=== PATIENT | female | born 1995 | race Caucasian/White ===

== ENCOUNTER → 2017-08-05 12:58 | Outpatient (CLI) | payer MEDICAID ==
[~2017-08-05 12:58] MED LIST: PRENATAL COMPLE1 TAB PO
[2017-09-17 11:20] VITALS: BMI 21.9
== END | disposition home or self-care (01) ==
LOC: D.US 12:58
DX: N13.30 Unspecified hydronephrosis (principal)

== ENCOUNTER 2017-09-17 10:30 | Inpatient (IN) | payer MEDICAID ==
[~2017-09-17] VITALS: Ht 170.2 cm; Wt 63.5 kg
[2017-09-17] MEDS ORDERED: PRENATAL COMPLE1 TAB PO (10:44)
[2017-09-17 11:20] VITALS: BP 110/67; Ht 170.2 cm; Wt 63.5 kg
[2017-09-17 11:51] LABS: HEMATOCRIT 29.1 % (36.0-48.0); HEMOGLOBIN 9.5 g/dL (12-16); MCH 27.9 pg (26.0-34.0); MCHC 32.6 g/dL (31.0-37.0); MCV 85.6 fL (80.0-100.0); MEAN PLATELET VOLUME 10.2 fL (7.4-10.4); RBC 3.4 10x6/uL (4.00-5.40); WBC 8.8 10x3/uL (4.8-10.8)
[2017-09-17 13:18] LABS: APPEARANCE SLT CLOUDY (CLEAR); BACTERIA MANY /hpf (NONE SEEN); BILIRUBIN NEGATIVE (NEGATIVE); COLOR YELLOW (YELLOW); GLUCOSE NEGATIVE (NEGATIVE); KETONE NEGATIVE (NEGATIVE); MUCUS <1+ /lpf (NONE SEEN); NITRITE NEGATIVE (NEGATIVE); PROTEIN TRACE mg/dL (NEGATIVE)
[2017-09-17 18:45] VITALS: BP 120/67
[2017-09-17 19:41] VITALS: BP 117/56
[2017-09-18 06:45] LABS: BASOPHILS 0.1 % (0-2); EOSINOPHILS 0.9 % (0-7); HEMATOCRIT 25.5 % (36.0-48.0); HEMOGLOBIN 8.3 g/dL (12-16); IMMATURE GRANULOCYTES 0.2 % (0-5); LYMPHOCYTES 16.7 % (15-50); MCHC 32.5 g/dL (31.0-37.0); MCV 86.1 fL (80.0-100.0); MEAN PLATELET VOLUME 10.7 fL (7.4-10.4); MONOCYTES 7.9 % (2-11); NEUTROPHILS 74.2 % (40-80); PLATELET COUNT 151 10x3/uL (130-400); RBC 2.96 10x6/uL (4.00-5.40); RDW 14.2 % (11.5-14.5); WBC 8.5 10x3/uL (4.8-10.8)
[2017-09-18 09:46] LABS: RAPID PLASMA REAGIN Non Reactive (Non Reactive)
[2017-09-18 19:47] VITALS: BP 102/67
[2017-09-18 23:05] VITALS: BP 109/72
[2017-09-19 08:20] VITALS: BP 100/55
== END 2017-09-19 14:45 | disposition home or self-care (01) | DRG 775 ==
LOC: D.LDO 10:30 → D.LD 10:53
PROVIDERS: Obstetrics & Gynecology
PROC: 10E0XZZ Delivery of Products of Conception, External Approach (ICD-10-PCS; principal; 2017-09-17)
DX: O80 Encounter for full-term uncomplicated delivery (principal); Z37.0 Single live birth; Z3A.38 38 weeks gestation of pregnancy

== ENCOUNTER 2017-09-25 08:30 | Emergency (ER) | payer MEDICAID ==
[2017-09-17 11:20] VITALS: BMI 21.9
[2017-09-25 09:05] LABS: BASOPHILS 0.1 % (0-2); HEMATOCRIT 33.5 % (36.0-48.0); HEMOGLOBIN 10.7 g/dL (12-16); IMMATURE GRANULOCYTES 0.3 % (0-5); LYMPHOCYTES 16.7 % (15-50); MCH 27.4 pg (26.0-34.0); MCHC 31.9 g/dL (31.0-37.0); MCV 85.9 fL (80.0-100.0); MEAN PLATELET VOLUME 10.2 fL (7.4-10.4); MONOCYTES 5.9 % (2-11); PLATELET COUNT 173 10x3/uL (130-400); RDW 13.5 % (11.5-14.5)
[2017-09-25 09:20] LABS: APTT 30.1 SECONDS (22.8-39.4); INR 0.97 (0.85-1.17); PROTIME 12.5 SECONDS (11.6-15.0)
[2017-09-25 09:21] LABS: D-DIMER-QUANTITATIVE 0.48 ug/mLFEU (0.20-0.54)
[2017-09-25 09:23] LABS: HCG SERUM POSITIVE (NEGATIVE)
[2017-09-25 09:32] LABS: ALBUMIN 3.3 g/dL (3.4-5.0); ALKALINE PHOSPHATASE 92 U/L (46-116); ALT (SGPT) 19 U/L (10-68); BILIRUBIN - TOTAL 0.31 mg/dL (0.2-1.3); CALC OSMOLALITY 284 mosm/kg (275-300); CALCIUM 9.5 mg/dL (8.5-10.1); CARBON DIOXIDE 26.9 mmol/L (21.0-32.0); CHLORIDE - SERUM 105 mmol/L (98-107); CREATININE - SERUM 0.6 mg/dL (0.6-1.3); GLUCOSE 87 mg/dL (74-106); POTASSIUM - SERUM 3.5 mmol/L (3.5-5.1); PROTEIN - SERUM 7.2 g/dL (6.4-8.2); SODIUM 144 mmol/L (136-145); UREA NITROGEN 11 mg/dL (7-18); eGFR NON AFRICAN AMERICAN > 90 mL/min (90-120)
== END 2017-09-25 11:11 | disposition home or self-care (01) ==
LOC: D.ER 08:30
PROVIDERS: Family Medicine
DX: O90.89 Other complications of the puerperium, not elsewhere classified (principal); N93.9 Abnormal uterine and vaginal bleeding, unspecified

== ENCOUNTER 2018-06-26 08:32 | Emergency (ER) | payer MEDICAID ==
[~2018-06-26] VITALS: Ht 170.2 cm; Wt 52.3 kg
[2018-06-26 08:39] VITALS: Ht 170.2 cm; Wt 52.3 kg
[2018-06-26 09:40] LABS: APPEARANCE HAZY (CLEAR); BILIRUBIN NEGATIVE (NEGATIVE); COLOR YELLOW (YELLOW); GLUCOSE NEGATIVE (NEGATIVE); KETONE NEGATIVE (NEGATIVE); NITRITE NEGATIVE (NEGATIVE); PROTEIN 1+ mg/dL (NEGATIVE); UROBILINOGEN NORMAL (NORMAL)
[2018-06-26 09:41] LABS: BACTERIA MODERATE /hpf (NONE SEEN); EPITHELIAL CELLS 0-5 /hpf (0-5); MUCUS >1+ /lpf (NONE SEEN); WHITE CELLS - URINE 0-5 /hpf (0-5)
[2018-06-26 10:05] LABS: ALBUMIN 4.4 g/dL (3.4-5.0); ALKALINE PHOSPHATASE 60 U/L (46-116); ALT (SGPT) 14 U/L (10-68); BILIRUBIN - TOTAL 0.37 mg/dL (0.2-1.3); CALC OSMOLALITY 276 mosm/kg (275-300); CALCIUM 9.3 mg/dL (8.5-10.1); CARBON DIOXIDE 22.2 mmol/L (21.0-32.0); CHLORIDE - SERUM 104 mmol/L (98-107); CREATININE - SERUM 0.6 mg/dL (0.6-1.3); GLUCOSE 81 mg/dL (74-106); POTASSIUM - SERUM 3.6 mmol/L (3.5-5.1); PROTEIN - SERUM 8.1 g/dL (6.4-8.2); SODIUM 140 mmol/L (136-145); UREA NITROGEN 10 mg/dL (7-18); eGFR NON AFRICAN AMERICAN > 90 mL/min (90-120)
[2018-06-26 10:16] LABS: BASOPHILS 0.4 % (0-2); HEMATOCRIT 36.2 % (36.0-48.0); HEMOGLOBIN 12.3 g/dL (12-16); IMMATURE GRANULOCYTES 0.2 % (0-5); LYMPHOCYTES 24.8 % (15-50); MCH 28.2 pg (26.0-34.0); MEAN PLATELET VOLUME 10.2 fL (7.4-10.4); MONOCYTES 6.1 % (2-11); NEUTROPHILS 64.5 % (40-80); PLATELET COUNT 164 10x3/uL (130-400); RBC 4.36 10x6/uL (4.00-5.40); RDW 13.6 % (11.5-14.5); WBC 5.4 10x3/uL (4.8-10.8)
[2018-06-26 10:27] LABS: HCG - QUANTITATIVE (MATERNAL) 33591 mIU/mL
[2018-06-26] MEDS ORDERED: FLAGYL500 MG PO (12:52)
[2018-06-26 13:08] VITALS: BP 103/69
== END 2018-06-26 13:08 | disposition home or self-care (01) ==
LOC: D.ER 08:32
PROVIDERS: Family Medicine
DX: O23.591 Infection of other part of genital tract in pregnancy, first trimester (principal); B96.89 Other specified bacterial agents as the cause of diseases classified elsewhere; Z3A.12 12 weeks gestation of pregnancy

== ENCOUNTER 2020-08-12 10:01 | Outpatient (CLI) | payer BC ==
[2018-06-26 08:39] VITALS: BMI 18.0
[~2020-08-12 10:01] MED LIST changes: +FLAGYL500 MG PO
== END 2020-08-12 12:27 | disposition home or self-care (01) ==
LOC: D.LDO 10:01 → D.LD 12:27
PROVIDERS: ATTEND Student in an Organized Health Care Education/Training Program
DX: O47.9 False labor, unspecified (principal)

== ENCOUNTER 2020-09-06 05:27 | Inpatient (IN) | payer BC ==
[~2020-09-06] VITALS: Ht 170.2 cm; Wt 68.0 kg
[2020-09-06 06:48] VITALS: BP 109/68; BMI 23.5
[2020-09-06 07:04] LABS: BASOPHILS 0.1 % (0-2); EOSINOPHILS 1.3 % (0-7); HEMATOCRIT 31.9 % (36.0-48.0); HEMOGLOBIN 10.6 g/dL (12-16); IMMATURE GRANULOCYTES 0.4 % (0-5); LYMPHOCYTE ABS# 1.58 10x3/uL (1.18-3.74); LYMPHOCYTES 22.6 % (15-50); MCH 29.9 pg (26.0-34.0); MCHC 33.2 g/dL (31.0-37.0); MCV 90.1 fL (80.0-100.0); MEAN PLATELET VOLUME 10.7 fL (7.4-10.4); MONOCYTES 7.7 % (2-11); NEUTROPHIL ABS# 4.74 10x3/uL (1.56-6.13); NEUTROPHILS 67.9 % (40-80); PLATELET COUNT 178 10x3/uL (130-400); RBC 3.54 10x6/uL (4.00-5.40); RDW 14.1 % (11.5-14.5)
[2020-09-06 07:23] LABS: UDS - AMPHET NEGATIVE QUAL (NEGATIVE); UDS - BARB NEGATIVE QUAL (NEGATIVE); UDS - BENZO NEGATIVE QUAL (NEGATIVE); UDS - COCAINE NEGATIVE QUAL (NEGATIVE); UDS - OPIATE NEGATIVE QUAL (NEGATIVE); UDS - PCP NEGATIVE QUAL (NEGATIVE); UDS - THC NEGATIVE QUAL (NEGATIVE)
--- NOTE | 2020-09-06 19:30 | NUR ---
PT REC'D IN BED AT THIS TIME. TO BREAST. DENIES PAIN AT THIS TIME. INSTRUCTED TO CALL NURSE FOR COMPLETE ASSESSMENT. UNDERSATNDING VERBALIZED. Karo KULKARNI RN
--- NOTE | 2020-09-06 20:15 | NUR ---
PT REC'D IN BED AT THIS TIME EATING. NO DISTRESS NOTED. Karo CORONADO RN
[2020-09-06 20:23] VITALS: BP 114/67
--- NOTE | 2020-09-06 20:50 | NUR ---
PT UP TO BATHROOM AT THSI TIME. VOIDED 700 ML. ASSISTED WITH PERICARE. Karo KULKARNI RN
--- NOTE | 2020-09-06 21:05 | NUR ---
PT TO ROOM 1257 FOR DURATION OF HOSPITAL STAY. Karo KULKARNI RN
--- NOTE | 2020-09-07 00:14 | NUR ---
PT RESTING WITH EYES CLOSED, RESP QUIET, NO DISTRESS NOTED, LEFT UNDISTURBED AT THIS TIME, IN OPEN CRIB CART AND FOB ASLEEP AT BEDSIDE
--- NOTE | 2020-09-07 02:14 | NUR ---
PT ASSSTED WITH .NO DISTRESS NOTED. Karo KULKARNI RN
--- NOTE | 2020-09-07 04:22 | NUR ---
PT MEDICATED WITH IBUPROFEN AND NORCO FOR PAIN 10/05. NO DISTRESS NOTED. Karo KULKARNI RN
--- NOTE | 2020-09-07 05:15 | NUR ---
PT REC'D IN BED AT THIS TIME. NO DISTRESS NOTED. NO NEEDS VOICED. Karo KULKARNI RN
--- NOTE | 2020-09-07 07:47 | NUR ---
SITTING IN HIGH FOWLERS POSITION BF INFANT. DENIES NEEDS AT THIS TIME. POC DISCUSSED, VERBALIZES UNDERSTANDING AND DENIES NEEDS.
[2020-09-07 08:10] VITALS: BP 117/72
--- NOTE | 2020-09-07 08:10 | NUR ---
SHIFT ASSESSMENT COMPLETED PER FLOWSHEET. FF, MIDLINE AND U2 WITH SMALL AMT RUBRA LOCHIA, NO CLOTS NOTED. REPORTS THAT SHE IS PASSING FLATUS AND VOIDING WITHOUT DIFFICULTY. C/O ABD CRAMPING /, MEDICATED PER EMAR. VSS. SIG OTHER AT BEDSIDE, SUPPORTIVE AND ATTENTIVE TO PT AND NEEDS. BED IN LOW POSITION WITH SRUP X2. CALL LIGHT AND PHONE WITHIN REACH.
[2020-09-07 08:14] LABS: RAPID PLASMA REAGIN Non Reactive (Non Reactive)
--- NOTE | 2020-09-07 09:09 | NUR ---
PAIN REASSESSMENT COMPLETED, 05/07. ICE WATER PROVIDED. DENIES ADDITIONAL NEEDS. RESTING IN OPEN CRIB AT BEDSIDE. BED IN LOW POSITION WITH SRUP X2. CALL LIGHT AND PHONE WITHIN REACH.
--- NOTE | 2020-09-07 10:37 | NUR ---
LAYING ON R SIDE, RESTING WITH EYES CLOSED. RESP REGULAR AND UNLABORED, NO S/S OF DISTRESS NOTED. BED IN LOW POSITION WITH SRUP X2. CALL LIGHT AND PHONE WITHIN REACH. RESTING QUIETLY IN OPEN CRIB AT BEDSIDE.
--- NOTE | 2020-09-07 11:47 | NUR ---
CARING FOR INFANT. DENIES PAIN AND NEEDS. SIG OTHER AT BEDSIDE, SUPPORTIVE AND ATTENTIVE TO PT AND INFANT NEEDS. BED IN LOW POSITION WITH SRUP X2. CALL LIGHT AND PHONE WITHIN REACH.
[2020-09-07 12:40] VITALS: Ht 170.2 cm; Wt 68.0 kg
--- NOTE | 2020-09-07 13:30 | NUR ---
BF. C/O ABD CRAMPING 10/05. MEDICATED PER EMAR. RHOGAM GIVEN PER ORDER TO R DELTOID. EDUCATED ON RHOGAM. VERBALIZES UNDERSTANDING AND DENIES QUESTIONS.
--- NOTE | 2020-09-07 14:26 | NUR ---
PAIN REASSESSMENT COMPLETED, DENIES PAIN. ICE WATER PROVIDED. DENIES ADDITIONAL NEEDS. BONDING WITH . BED IN LOW POSITION WITH SRUP X2. CALL LIGHT AND PHONE WITHIN REACH.
--- NOTE | 2020-09-07 16:19 | NUR ---
TOWELS PROVIDED PER REQUEST. UP TO SHOWER. LINENS CHANGED. DENIED ADDITIONAL NEEDS. FOB BONDING WITH . VERBALIZES UNDERSTANDING OF BR CALL LIGHT USE.
--- NOTE | 2020-09-07 17:14 | NUR ---
BF , DENIES PAIN AND NEEDS AT THIS TIME. BED IN LOW POSITION WITH SRUP X2. CALL LIGHT AND PHONE WITHIN REACH.
--- NOTE | 2020-09-07 17:50 | NUR ---
THIS RN TO ROOM TO ANSWER CALL LIGHT. PT AND SIG OTHER EXPRESS CONCERNS OVER INFANT SPITTING UP. SMALL AMOUNT COLOSTRUM NOTED ON BLANKET IN [place]. PT REASSURED, ENCOURAGED SHE DID WELL BY PICKING BABY UP AND SUCTIONING THE MOUTH WHEN GAGGING ON SPIT UP PER PT REPORTS. ENCOURAGED TO BURP WELL AFTER FEEDS. INFANT NOTED TO BE RESTING IN MOTHER'S ARMS, NO DISTRESS NOTED, PINK AND BREATHING NORMALLY. NO GAGGING OR CHOKING SEEN. PT REASSURED.
--- NOTE | 2020-09-07 18:29 | NUR ---
CONVERSING WITH SIG OTHER AND WATCHING TV. DENIES PAIN AND NEEDS. INFANT RESTING IN OPEN CRIB AT BEDSIDE. SIG OTHER AT BEDSIDE, SUPPORTIVE AND ATTENTIVE TO PT AND INFANT NEEDS.
--- NOTE | 2020-09-07 19:07 | NUR ---
REPORT RECEIVED FROM ARCELIA TENORIO TO ASSUME PT CARE.
[2020-09-07 19:15] VITALS: BP 111/79
--- NOTE | 2020-09-07 19:15 | NUR ---
SHIFT ASSESSMENT COMPLETED, SEE FLOWSHEET
--- NOTE | 2020-09-07 20:57 | NUR ---
PATIENT SITTING UP IN BED HOLDING INFANT. DENIES PAIN OR NEEDS. WILL CONTINUE TO MONITOR.
--- NOTE | 2020-09-07 21:57 | NUR ---
PATIENT , ICE WATER PROVIDED PER REQUEST. NO FURTHER NEEDS IDENTIFIED. WILL CONTINUE TO MONITOR.
--- NOTE | 2020-09-07 22:44 | NUR ---
PT WALKING AROUND ROOM, DENIES NEEDS, WILL CONTINUE TO MONITOR.
--- NOTE | 2020-09-08 01:00 | NUR ---
PATIENT LYING IN BED WITH EYES OPEN, STATES THAT SHE DOESNT NEED ANYTHING. PT ENCOURAGED TO CALL WITH ANY NEEDS, WILL CONTINUE TO MONITOR.
--- NOTE | 2020-09-08 02:42 | NUR ---
PAIN MEDICATION ADMINISTERED PER PT REQUEST. EXTRA BLANKETS PROVIDED FOR INFANT. NO FURTHER NEEDS IDENTFIED. WILL CONTINUE TO MONITOR.
--- NOTE | 2020-09-08 05:10 | NUR ---
PT SLEEPING, EASILY AROUSED TO VERBAL. NO NEEDS IDENTIFIED. WILL CONTINUE TO MONITOR
--- NOTE | 2020-09-08 06:35 | NUR ---
PT RESTING QUIETLY WITH EYES CLOSED, BABY REMAINS IN OPEN CRIB AT BEDSIDE. NO NEEDS IDENTIFIED, WILL CONTINUE TO MONITOR.
--- NOTE | 2020-09-08 07:13 | NUR ---
BF . DENIES PAIN AND NEEDS AT THIS TIME. BOARD UPDATED. BED IN LOW POSITION WITH SRUP X2. CALL LIGHT AND PHONE WITHIN REACH.
[2020-09-08 08:29] VITALS: BP 117/74
--- NOTE | 2020-09-08 08:29 | NUR ---
SHIFT ASSESSMENT COMPLETED. VSS. FF, MIDLINE AND U2 WITH SMALL AMT RUBRA LOCHIA, NO CLOTS NOTED. POC DISCUSSED WITH PT, VERBALIZES UNDERSTANDING AND DENIES QUESTIONS. REPORTS THAT SHE IS VOIDING AND PASSING FLATUS WITHOUT DIFFICULTY. EDUCATED ON PP CARE AND PERICARE, VERBALIZES UNDERSTANDING. PERIBOTTLE, PADS, AND PANTIES PROVIDED. DENIES PAIN. BED IN LOW POSITION WITH SRUP X2. CALL LIGHT AND PHONE WITHIN REACH. IN OPEN CRIB AT BEDSIDE.
--- NOTE | 2020-09-08 09:35 | NUR ---
DR. AGUIRRE PAGED TO NOTIFY OF REPEAT B/P READING AND PT REPORTS OF IMPROVING HEADACHE. NO ORDERS REC'D.
--- NOTE | 2020-09-08 09:49 | NUR ---
LAYING ON R SIDE, RESTING WITH EYES CLOSED, RESP REGULAR AND UNLABORED, NO S/S OF DISTRESS NOTED. INFANT RESTING IN OPEN CRIB AT BEDSIDE. BED IN LOW POSITION WITH SRUP X2. CALL LIGHT AND PHONE WITHIN REACH.
--- NOTE | 2020-09-08 10:37 | NUR ---
DENIES PAIN NEEDS. BF . SIG OTHER AT BEDSIDE, SUPPORTIVE AND ATTENTIVE TO PT AND NEEDS. BED IN LOW POSITION WITH SRUP X2. CALL LIGHT AND PHONE WITHIN REACH.
--- NOTE | 2020-09-08 12:48 | NUR ---
C/O ABD CRAMPING. MEDICATED PER EMAR. TUX AND DERMAPLAST PROVIDED. INSTRUCTED ON USE AND VERBALIZES UNDERSTANDING. ICE WATER PROVIDED. CARING FOR . SIG OTHER AT BEDSIDE, SUPPORTIVE AND ATTENTIVE TO PT AND NEEDS.
--- NOTE | 2020-09-08 13:47 | NUR ---
UP IN SHOWER. DENIES NEEDS. SIG OTHER CARING FOR . DENIES PAIN AND NEEDS.
--- NOTE | 2020-09-08 15:06 | NUR ---
DENIES PAIN AND NEEDS. PADS PROVIDED.
--- NOTE | 2020-09-08 16:07 | NUR ---
DR. HOWE AT BEDSIDE DISCUSSING INFANT D/C AND POC. PT DENIES NEEDS. BED IN LOW POSITION WITH SRUP X2. CALL LIGHT AND PHONE WTIHIN REACH. WILL CONTINUE TO MONITOR.
[2020-09-08] MEDS ORDERED: IBUPROFEN600 MG PO (17:03)
[2020-09-08] MEDS ORDERED: HYDROCODON-ACE1 EAC7 PO (17:03)
--- NOTE | 2020-09-08 17:48 | NUR ---
VERBAL AND WRITTEN D/C INSTRUCTIONS GIVEN TO PT AND SIG OTHER, BOTH VERBALIZE UNDERSTANDING AND DENY QUESTIONS. PFW PP CARE INSTRUCTION, [employer], AND SAVE YOUR LIFE HANDOUTS PROVIDED. PT TO DRESS AND PLACE IN CARSEAT AND CALL WHEN READY FOR W/C OUT.
--- NOTE | 2020-09-08 18:15 | NUR ---
OFF UNIT VIA W/C WITH JOVANNA LONGO LPN.
== END 2020-09-08 18:15 | disposition home or self-care (01) | DRG 807 ==
LOC: D.LD 05:27
PROVIDERS: ADMIT Obstetrics & Gynecology; ATTEND Obstetrics & Gynecology
PROC: 10E0XZZ Delivery of Products of Conception, External Approach (ICD-10-PCS; principal; 2020-09-06)
PROC: 10907ZC Drainage of Amniotic Fluid, Therapeutic from Products of Conception, Via Natural or Artificial Opening (ICD-10-PCS; 2020-09-06)
PROC: 3E033VJ Introduction of Other Hormone into Peripheral Vein, Percutaneous Approach (ICD-10-PCS; 2020-09-06)
DX: O80 Encounter for full-term uncomplicated delivery (principal); Z37.0 Single live birth; Z3A.39 39 weeks gestation of pregnancy